=== PATIENT | male | born 1930 | race Caucasian/White ===

== ENCOUNTER 2018-02-10 10:41 | Inpatient (IN) | payer OTHER ==
[~2018-02-10] VITALS: Ht 180.3 cm; Wt 69.6 kg
[~2018-02-10 10:41] MED LIST: ASPI81CH43 PO; CLON0.1T PO; LEVO25TA9; TAM04C
[2018-02-10 12:24] LABS: Basophils # (auto) 0 uL; Basophils % (auto) 0.5 % (0.0-2.0); Eosinophils # (auto) 0.2 uL; Eosinophils % (auto) 1.7 % (0.0-7.0); Hemoglobin 13.7 g/dL (13.5-17.5); Lymphocytes # (auto) 1.9 uL; Lymphocytes % (auto) 20.3 % (10.0-50.0); Mean Corpuscular Hemoglobin 32.8 pg (28.0-32.0); Mean Corpuscular Hgb Conc. 34.1 g/dL (32.0-36.0); Mean Corpuscular Volume 96.2 fL (80.0-100.0); Monocytes # (auto) 0.6 uL; Neutrophils # (auto) 6.5 uL; Neutrophils % (auto) 70.5 % (37.0-80.0); Platelet Count (auto) 364 10^3/uL (140-450); Red Blood Cells 4.16 10^6/uL (4.5-5.90); Red Cell Distribution Width 14.5 % (11.8-14.3); White Blood Cell 9.2 10^3/uL (4.4-10.8)
[2018-02-10 12:40] LABS: Alanine Aminotransferase 28 U/L (16-61); Anion Gap 7 (5-15); BUN/Creatinine Ratio 10.9; Blood Alcohol < 3.0 mg/dL (0-5); Blood Urea Nitrogen 13 mg/dL (7-18); Calcium 8.4 mg/dL (8.5-10.1); Carbon Dioxide 28 mmol/L (21-32); Chloride 105 mmol/L (98-107); GFR African American 74 mL/min; GFR Non-African American 61 mL/min; Glucose 91 mg/dL (74-106); Magnesium 2.3 mg/dL (1.6-2.6); Potassium 3.6 mmol/L (3.5-5.1); Sodium 140 mmol/L (136-145)
[2018-02-10 12:41] LABS: Partial Thromboplastin Time 28.7 sec (23.78-33.04); Prothrombin Time 10.7 sec (9.27-12.13)
[2018-02-10 12:49] LABS: Alkaline Phosphatase 95 U/L (45-117); Aspartate Aminotransferase 34 U/L (15-37); Bilirubin, Total 0.7 mg/dL (0.2-1.0); Total Protein 8.1 g/dL (6.4-8.2)
[2018-02-10] MEDS ORDERED: ASPirin-EC 81 mg tab PO ONE (14:00)
[2018-02-10] MEDS ORDERED: cloNIDine HCL 0.1 MG TAB PO ONE (14:00)
[2018-02-10] MEDS ORDERED: MORPHINE SULFATE 4 MG/ML SYR/VIAL IV PRN (16:15)
[2018-02-10] MEDS ORDERED: NITROGLYCERIN 0.4 MG SL TAB SL PRN (16:15)
[2018-02-10 16:18] LABS: Urine Bacteria NONE SEEN /hpf (None Seen); Urine Blood Negative /uL (Negative); Urine Mucus FEW (None Seen); Urine Specific Gravity 1.013 (1.001-1.035); Urine WBC <1 /hpf (0 - 3)
[2018-02-10] MEDS: D5W/SOD CHL 0.45% 1,000 ML IV SCH (17:52)
[2018-02-10 21:00] VITALS: BP 172/96
[2018-02-10 22:00] VITALS: BP 172/96
[2018-02-11] MEDS: D5W/SOD CHL 0.45% 1,000 ML IV SCH ×2 (02:55→12:23)
[2018-02-11 06:02] VITALS: BP 137/77
[2018-02-11 08:00] VITALS: BP 152/85
[2018-02-11] MEDS ORDERED: LEVOTHYROXINE SODIUM 100 MCG/5 ML INJ IV ONE (08:30)
[2018-02-11 09:00] VITALS: BP 152/76
[2018-02-11] MEDS ORDERED: amLODIPine BESYLATE 5 MG TAB PO SCH (10:00)
[2018-02-11] MEDS ORDERED: ENOXAPARIN SOD 40 MG/0.4 ML SYRINGE SC SCH (10:00)
[2018-02-11 11:29] VITALS: BP 152/85
[2018-02-11 13:00] VITALS: BP 165/90
[2018-02-11] MEDS ORDERED: cloNIDine HCL 0.1 MG TAB PO PRN (13:30)
== END 2018-02-11 17:20 | disposition hospice, home (50) | DRG 644 ==
LOC: ER 10:41 → EDBD 10:41 → OVERFLOW 10:42 → CENTRAL 19:15
PROVIDERS: ADMIT Internal Medicine; ATTEND Internal Medicine
DX: E03.9 Hypothyroidism, unspecified (principal); I67.4 Hypertensive encephalopathy; F03.90 Unspecified dementia, unspecified severity, without behavioral disturbance, psychotic disturbance, mood disturbance, and anxiety; F17.200 Nicotine dependence, unspecified, uncomplicated; I10 Essential (primary) hypertension; I67.2 Cerebral atherosclerosis; J44.9 Chronic obstructive pulmonary disease, unspecified; K21.9 Gastro-esophageal reflux disease without esophagitis; N40.0 Benign prostatic hyperplasia without lower urinary tract symptoms; F41.9 Anxiety disorder, unspecified; Z80.42 Family history of malignant neoplasm of prostate; Z82.3 Family history of stroke; Z82.49 Family history of ischemic heart disease and other diseases of the circulatory system; Z79.82 Long term (current) use of aspirin; Z79.899 Other long term (current) drug therapy
CPT/HCPCS: 36415; 51702; 70450; 71045; 80053; 80320; 81001; 81002; 82140; 82607; 83605; 83735; 84443; 84484; 85025; 85610; 85730; 87040; 94761; J3490